=== PATIENT | female | born 1980 ===

== ENCOUNTER 2021-02-13 06:52 | Emergency (ER) | payer MEDICAID, OTHER ==
[~2021-02-13] VITALS: Ht 160 cm; Wt 76.0 kg
[2021-02-13 07:12] VITALS: BP 125/83
== END 2021-02-13 07:43 | disposition home or self-care (01) ==
LOC: ER 06:52
DX: L73.9 Follicular disorder, unspecified (principal); R59.0 Localized enlarged lymph nodes; Z98.890 Other specified postprocedural states
CPT/HCPCS: 99281